=== PATIENT | female | born 1940 | race Caucasian/White ===

== ENCOUNTER → 2018-03-12 | Day surgery (SDC) | payer OTHER ==
[~2018-03-12] MED LIST: ALBUTEROL SULFATE 2.5 MG/3 ML NEBU. NEB PRN; AMLO5TAB7 PO; ATROPINE 0.5 MG/5 ML DISP.SYRIN. IV PRN; IV RINGERS SOLUTION,LACTATED 1,000 ML IV SCH; LIDOCAINE 2% PF Vial for OR 5 ML VIAL. ONE; LISI-334 PO; NALOXONE 0.4 MG/ML VIAL. IV PRN; ONDANSETRON PF 4 MG/2 ML VIAL. IV PRN; POTA10TA10 PO; PROPOFOL 40 ML IV ONE; SERT100T8 PO; diphenhydrAMINE 50 MG/ML VIAL IV PRN
[2018-03-12 12:43] VITALS: BP 121/56
--- NOTE | 2018-03-16 17:09 | PATHOLOGY ---
[facility] Accession Number: [id number] . 01 Material submitted: . RANDOM COLON BIOPSIES . 01 Clinical history: . Screening Diverticulosis . 02 Diagnosis: . Colonic mucosa, random colon biopsies: - Patchy mild acute colitis. LB/03/16/2018 . 02 Comment: Sections of the random colon biopsy reveal multiple segments of colonic mucosa showing patchy acute inflammation within the lamina propria with focal neutrophilic crypt injury. There is no evidence of an active chronic destructive colitis, lymphocytic colitis, or collagenous colitis. The findings may be due to diverticular disease or acute self-limited colitis. (JPM/db; 03/16/18) . 02 Electronically signed: . Misbah Benson MD, Pathologist NPI- [id number] . 01 Gross description: . The specimen is received in formalin, labeled "Eliza De Leon, random colon bxs" and consists of multiple fragments of soft allen tissue measuring 1.0 x 0.5 x 0.2 cm in aggregate which are entirely submitted in A1. (SDY; 03/15/2018) SYU/SYU . 02 Pathologist provided ICD-10: K52.9 . 02 CPT . 438775 Specimen Comment: A courtesy copy of this report has been sent to Specimen Comment: [phone], . Specimen Comment: Report sent to / DR RAJESH ROACH Performed at: 01 [facility] [address], [place] [id number] MD Marcel Castro MD Phone: [phone] Performed at: 02 [facility] [address], [place] [id number] MD Misbah Benson MD Phone: [phone]
== END | disposition home or self-care (01) ==
LOC: SURG 09:50
PROVIDERS: ATTEND Internal Medicine Gastroenterology
DX: Z12.11 Encounter for screening for malignant neoplasm of colon (principal); K57.30 Diverticulosis of large intestine without perforation or abscess without bleeding; K64.1 Second degree hemorrhoids; I10 Essential (primary) hypertension; J45.909 Unspecified asthma, uncomplicated; F41.9 Anxiety disorder, unspecified; I25.2 Old myocardial infarction; Z79.899 Other long term (current) drug therapy; Z90.49 Acquired absence of other specified parts of digestive tract; M19.90 Unspecified osteoarthritis, unspecified site; Z98.890 Other specified postprocedural states
CPT/HCPCS: 45380; J2704; J7120; 88305; J2001